=== PATIENT | male | born 1985 | race Caucasian/White ===

== ENCOUNTER 2018-06-01 17:22 | Emergency (ER) | payer MEDICAID, SELFPAY ==
[2018-06-01 17:23] VITALS: BP 124/75; PULSE 75; RESP 18; TEMP 36.9; O2SAT 100; BMI 31.5
--- NOTE | 2018-06-01 17:38 | ED.VISSUMM ---
- ER Visit Summary Date of Service: 06/01/18 Chief Complaint: Chest pain after injury History of Present Illness: The patient is a 32 M who presents for left-sided chest pain after an injury 3 weeks ago. Patient fell at work, striking his chest on the peak of a roof. He has been having left upper chest pain ever since, and was evaluated 1 week after the accident at an outside facility, with a chest x-ray showing no obvious injuries or acute findings. Patient has been using ibuprofen for pain, but states the pain has not improved at all and is worsened somewhat. He has associated shortness of breath. It is worse in the morning when he first wakes up. It is worse with breathing and movement. No associated fever, significant cough, abdominal pain, nausea or vomiting, or other complaints. Patient is a smoker. Physical Examination: Vital signs: afebrile, hemodynamically stable, no hypoxia on room air General: well nourished, well developed, in no distress Skin: warm, dry, no rash, no pallor HEENT: normocephalic and atraumatic; PERRL, EOMI, moist mucous membranes Cardiovascular: regular rate and rhythm without murmurs, no peripheral edema, 2+ pulses all distal extremities, chest is tender in the left anterior superior chest wall, no contusions or hematomas, no flail chest, no asymmetry with inspiration Respiratory: No increased work of breathing, lungs are clear to auscultation bilaterally, no rales, rhonchi or wheezing Abdominal: Abdomen is soft, nontender with normoactive bowel sounds, no guarding or rebound, no masses MSK: Moves all extremities, no deformities, normal strength Neuro: Awake and alert, oriented ?4. No facial droop, sensation and motor function intact and symmetric Test Results: Clinical Impression(s) from Imaging Studies Chest CT 06/01/18 17:38 IMPRESSION: 1. Left-sided basilar airspace disease and pleural effusion is most likely related to the recent trauma and probably represents a small hemothorax, sequela of pulmonary contusion and pulmonary hemorrhage. 2. There is no definite CT evidence for acute left-sided rib fracture. Electronically Signed: Edith Rodriguez MD at 19:08 EDT , Service support , Emergency Department Course and Treatment: Patient presents for continued chest pain after an injury 3 weeks ago and a negative chest x-ray 2 weeks ago. Because he is having continued left-sided pain, a CT of the chest was performed. It showed findings consistent with a left lower pulmonary contusion and a small hemothorax. Patient is hemodynamically stable, has no hypoxia, tachypnea, and is well-appearing. He was discussed with Dr. Burns, who will follow up with him in the pulmonology clinic in 4-[address] of the chest to watch for improvement and resolution of the hemothorax. She received IV Toradol in the emergency department with great improvement in his pain. He was prescribed an incentive spirometer to use and given prescription pain medications. He was placed on azithromycin for coverage for any possible pneumonia related to the injury. Patient was given detailed follow-up instructions for the pulmonology clinic. He will return emergency department immediately if he has any worsening of his condition. Discharge home. Treatment Plan: [] Disposition: [] Impression: Left subacute pulmonary contusion with hemothorax This note was generated with [employer] dictation software. It may contain incorrect words, spelling, and punctuation that were not noted in review of the chart prior to signing ED Disposition - Plan for ED Patient: Disposition: Home or Assisted Living Chief Complaint: Chest Other Instructions: ED Effusion Pleural Prescriptions: Azithromycin [Zithromax Z-Mayur] 250 mg PO UD #1 box Hydrocodone/Acetaminophen [[place] 5-325 Tablet] 1 ea PO 4X/DAY PRN PRN 3 Days #12 tab PRN Reason: Pain Naproxen [Naprosyn] 500 mg PO BID PRN PRN #20 tab PRN Reason: Pain Referrals: Kane Burns, [STAFF PHYSICIAN] - As soon as possible NOT,DEFINED [Primary Care Provider] - Additional Instructions: You have a bruised lung and a small collection of blood in the left side of your chest. Please follow-up with the Dr. Burns, or another physician in the pulmonary clinic, calling as soon as possible to make an appointment for 4-6 weeks from now. The number is . Use the incentive spirometer 10 times every hour while awake. You may use the [place] for severe pain, especially at night. Use the naproxen as needed for mild to moderate pain. If you have any worsening of your condition or any new concerning symptoms, please return immediately to the emergency department for another evaluation.
[2018-06-01] MEDS: Ketorolac 15 MG/ML Vial IV (18:50)
--- NOTE | 2018-06-01 20:10 | ED.DEP ---
ED Disposition - Plan for ED Patient: Disposition: Home or Assisted Living Chief Complaint: Chest Other Instructions: ED Effusion Pleural Prescriptions: Azithromycin [Zithromax Z-Mayur] 250 mg PO UD #1 box Hydrocodone/Acetaminophen [[place] 5-325 Tablet] 1 ea PO 4X/DAY PRN PRN 3 Days #12 tab PRN Reason: Pain Naproxen [Naprosyn] 500 mg PO BID PRN PRN #20 tab PRN Reason: Pain Referrals: NOT,DEFINED [Primary Care Provider] - Kane Burns, [STAFF PHYSICIAN] - As soon as possible Additional Instructions: You have a bruised lung and a small collection of blood in the left side of your chest. Please follow-up with the Dr. Burns, or another physician in the pulmonary clinic, calling as soon as possible to make an appointment for 4-6 weeks from now. The number is . Use the incentive spirometer 10 times every hour while awake. You may use the [place] for severe pain, especially at night. Use the naproxen as needed for mild to moderate pain. If you have any worsening of your condition or any new concerning symptoms, please return immediately to the emergency department for another evaluation.
--- NOTE | 2018-06-01 20:13 | DCINST.ED_ITS ---
ED Disposition - Plan for ED Patient: Disposition: Home or Assisted Living Chief Complaint: Chest Other Instructions: ED Effusion Pleural Prescriptions: Azithromycin [Zithromax Z-Mayur] 250 mg PO UD #1 box Hydrocodone/Acetaminophen [[place] 5-325 Tablet] 1 ea PO 4X/DAY PRN PRN 3 Days # 12 tab PRN Reason: Pain Naproxen [Naprosyn] 500 mg PO BID PRN PRN #20 tab PRN Reason: Pain Referrals: NOT,DEFINED [Primary Care Provider] - Kane Burns, [STAFF PHYSICIAN] - As soon as possible Additional Instructions: You have a bruised lung and a small collection of blood in the left side of your chest. Please follow-up with the Dr. Burns, or another physician in the pulmonary clinic, calling as soon as possible to make an appointment for 4-6 weeks from now. The number is . Use the incentive spirometer 10 times every hour while awake. You may use the [place] for severe pain, especially at night. Use the naproxen as needed for mild to moderate pain. If you have any worsening of your condition or any new concerning symptoms, please return immediately to the emergency department for another evaluation.
[2018-06-01] MEDS: HYDROcodone Bitartrate/Apap 5/325 Tablet PO (20:32)
[2018-06-01 20:35] VITALS: BP 132/70; PULSE 70; RESP 17; O2SAT 96
== END 2018-06-01 20:35 | disposition home or self-care (01) ==
PROVIDERS: Emergency Provider Emergency Medicine
DX: S27.321A Contusion of lung, unilateral, initial encounter (principal); S27.1XXA Traumatic hemothorax, initial encounter; W19.XXXA Unspecified fall, initial encounter; Y93.9 Activity, unspecified; Y92.9 Unspecified place or not applicable; F17.200 Nicotine dependence, unspecified, uncomplicated
CPT/HCPCS: 71250; 96374; 99283